=== PATIENT | male | born 1985 | race Caucasian/White ===

== ENCOUNTER 2017-04-26 02:25 | Emergency (ER) | payer OTHER ==
[~2017-04-26] VITALS: Ht 188 cm; Wt 99.8 kg
[~2017-04-26 02:25] MED LIST: CHLORDIAZEPOXID25 M1 PO; ONDANSETRON HCL4 M2 PO
[2017-04-26 04:00] VITALS: BP 128/75
== END 2017-04-26 04:00 | disposition home or self-care (01) ==
LOC: ER 02:25
DX: S41.111A Laceration without foreign body of right upper arm, initial encounter (principal); F41.9 Anxiety disorder, unspecified; F10.10 Alcohol abuse, uncomplicated; W25.XXXA Contact with sharp glass, initial encounter; Y93.89 Activity, other specified; Y92.89 Other specified places as the place of occurrence of the external cause; Y99.8 Other external cause status; Z88.0 Allergy status to penicillin

== ENCOUNTER 2020-02-28 15:33 | Inpatient (IN) | payer OTHER ==
[~2020-02-28] VITALS: Ht 182.9 cm; Wt 90.8 kg
[2020-02-28 15:39] VITALS: BP 142/95
[2020-02-28] MEDS ORDERED: DESYREL150 MG PO (15:44)
[2020-02-28 16:45] LABS: ABSOLUTE NEUTROPHILS 7.8 thou/uL (1.4-8.2); BASOPHILS 0.5 % (0.0-2.0); EOSINOPHILS 0.1 % (0.0-3.0); HEMATOCRIT 54.6 % (42.0-52.0); HEMOGLOBIN 18.5 gm/dL (14.0-18.0); LYMPHOCYTES 21.1 % (24.0-44.0); MCH 31.3 pg (26.0-34.0); MCHC 33.8 g/dL (28.0-37.0); MCV 92.5 fL (80.0-100.0); MONOCYTES 6.7 % (1.0-8.0); PLATELET COUNT 438 thou/uL (150-400); POLYS 71.6 % (36.0-66.0); RBC 5.91 mil/uL (4.50-6.00); RDW 14.2 % (10.5-14.5)
[2020-02-28 16:48] LABS: ANION GAP 15 mmol/L (7-16); BUN 12 mg/dL (7-18); CALCIUM 8.9 mg/dL (8.5-10.1); CHLORIDE 96 mmol/L (98-107); CO2 26 mmol/L (21-32); CREATININE 1.5 mg/dL (0.7-1.3); GLUCOSE 100 mg/dL (74-106); POTASSIUM 3.9 mmol/L (3.5-5.1); SODIUM 137 mmol/L (136-145)
[2020-02-28 16:54] LABS: ALBUMIN 4.3 g/dL (3.4-5.0); DIRECT BILIRUBIN < 0.1 mg/dL (<0.1-0.2); LIPASE 93 U/L (73-393); SGOT 34 U/L (15-37); SGPT 47 U/L (30-65); TOTAL BILIRUBIN 0.3 mg/dL (<0.1-1.0); TOTAL PROTEIN 8.5 g/dL (6.4-8.2)
[2020-02-28 20:17] VITALS: BP 118/66
[2020-02-28 20:26] VITALS: BP 136/70
[2020-02-28 21:17] VITALS: BP 138/81
[2020-02-28 23:55] VITALS: BP 143/68
[2020-02-29 03:05] VITALS: BP 129/69
--- NOTE | 2020-02-29 06:30 | NUR ---
PATIENTS CARES WERE RECIEVED FROM THE ER. PATIENT WAS ASSESSED AND MEDS WERE PASSED. PATIENTS ONLY REQUEST IS SOMETHING FOR ANXIETY. LOR[place] IV WAS OBTAINED. HOURLY ROUNDS WERE DONE. THE BED IS IN A LOW AND LOCKED POSITION
[2020-02-29 07:22] VITALS: BP 129/81
[2020-02-29 09:41] LABS: CALCIUM 8.4 mg/dL (8.5-10.1); CREATININE 1.5 mg/dL (0.7-1.3)
[2020-02-29 11:37] VITALS: BP 133/87
[2020-02-29 15:50] VITALS: BP 121/71
--- NOTE | 2020-02-29 18:43 | NUR ---
RECEIVED PT'S CARE AROUND 0700; PT. ON BED; AOX4; DURING AM ASSESSMENT C/O HEADACHE, NAUSEA, CHILL OVER BODY; NO CIWA PROTOCOL ON EMAR; PHYSICIAN NOTIFIED; ORDERS RECEIVED; MEDICATION GIVEN; SR ON THE MONITOR; ABLE TO AMBULATE FROM BED TO RESTHROOM WITHOUT ASSISTANCE; EDUCATED ABOUT FALL PREVENTIONS; C/O HEADACHE AROUND NOON; PRN MEDICATION GIVEN; CIWA REPLACED PER PROTOCOL; ASSESSMENT CHARGED; FOLLOWING POC; WILL PASS ON REPORT;
[2020-02-29 19:28] VITALS: BP 142/85
[2020-03-01 04:12] VITALS: BP 122/77
--- NOTE | 2020-03-01 05:54 | NUR ---
ASSESSMENT DOCUMENTED.PT BEEN SLEEPING MOST OF THE NOC.ON RA W/O RESP DISTRESS.ON CIWR PER PROTOCOL SCORE 1-2.DENIES ANY DISCOMFORT.SEEMS CALM W/O RESP DISTRESS.UP AD DINAH IN THE ROOM.IVF INFUSING.PT HOPING TO GO HOME TODAY.WILL CONT TO MONITOR PER POC.
[2020-03-01 08:00] VITALS: BP 138/78
--- NOTE | 2020-03-01 10:30 | NUR ---
PT ADMITTED RELATED TO ETOH. CM REVIEWED CHART AND SPOKE WITH CARE TEAM. CM CALLED AND SPOKE WITH PT OVER [facility] PHONE YESTERDAY. PT INDICATED HE LIVES IN AN APARTMENT WITH TWO MALE ROOMMATES. PT INDICATED THERE ARE 4 FLIGHTS OF STEPS TO ENTER AND 8 TO ENTER. PT INDICATED HE HAD BEEN INDEPENDENT WITH GAIT AND [employer]LS MEDICAL COLLECTIONS. NO DME. PT INDICATED HE HAD BEEN TO [facility] FOR 3 MONTHS ABOUT A YEAR AND A HALF AGO. PT INDICATED HE WOULD PREFER TO DO OP TREATMENT UPON DISCHARGE HE WORRIES ABOUT REQUESTING LEAVE FROM HIS CURRENT EMPLOYER. CM TO PROVIDE INFO OP TREATMENT OPTIONS FOR PT TO FOLLOW UP WITH. CM TO FOLLOW INDICATED WITH DC PLANNING.
[2020-03-01 11:52] LABS: ABSOLUTE NEUTROPHILS 3.2 thou/uL (1.4-8.2); BASOPHILS 0.4 % (0.0-2.0); EOSINOPHILS 1.4 % (0.0-3.0); HEMATOCRIT 46.9 % (42.0-52.0); HEMOGLOBIN 15.6 gm/dL (14.0-18.0); LYMPHOCYTES 20.3 % (24.0-44.0); MCHC 33.3 g/dL (28.0-37.0); MCV 93.1 fL (80.0-100.0); MONOCYTES 11.3 % (1.0-8.0); PLATELET COUNT 295 thou/uL (150-400); POLYS 66.6 % (36.0-66.0); RBC 5.03 mil/uL (4.50-6.00); RDW 14.2 % (10.5-14.5); WBC 4.8 thou/uL (4.0-11.0)
[2020-03-01 12:10] LABS: ALBUMIN 3.4 g/dL (3.4-5.0); CALCIUM 8.4 mg/dL (8.5-10.1); CREATININE 1.2 mg/dL (0.7-1.3); POTASSIUM 4.1 mmol/L (3.5-5.1); TOTAL PROTEIN 6.8 g/dL (6.4-8.2)
[2020-03-01] MEDS ORDERED: TRAZODONE 150150 M1 PO (15:01)
[2020-03-01 16:02] VITALS: BP 138/78
[2020-03-01 16:30] VITALS: BP 147/88
--- NOTE | 2020-03-01 18:39 | NUR ---
RECEIVED PT'S CARE AROUND 0700; PT. ON BED; RESTING WITH EYES CLOSED; EQUAL CHEST RISING NOTICED; SR ON THE MONITOR; DURING AM ASSESSMENT NO C/O PAIN; AM MEDICATION GIVEN; POOR APPETITE THROUGH THE DAY; PHYSICIAN NOTIFIED DURING ROUNDING; ORDERS RECEIVED; REST & EXERCISE 02 ORDERED PER PHYSICIAN; ELEVATED HR WHILE AMBULATING; PHYSICIAN NOTIFIED; ORDERS ON PLACE; PT. UPDATE ABOUT POC; ST. UNDERSTANDING; NS FLUIDS STARTING; SR ON THE MONITOR AT REST; ST. WITH EXERTION; LORAZEPAM GIVEN DURING THE AFTERNOON; PER [facility] PROTOCOL; ASSESSMENT CHARGED; FOLLOWING POC; WILL PASS ON REPORT;
[2020-03-01 20:15] VITALS: BP 155/81
--- NOTE | 2020-03-02 03:48 | NUR ---
PATIENT IS PROGRESSING IN HIS CARE PLAN. VITAL SIGNS STABLE WITH PATIENT HAVING NO COMPLAINTS OF PAIN OR NAUSEA. FULLY ORIENTED, PATIENT IS ABLE TO CALL APPROPRIATELY FOR NEEDS. CIWA PER PROTOCOL. NO PROBLEMS BREATHING ON ROOM AIR EVIDENCED BY ASSESSMENT AND SPOT OXYGENATION CHECKS. POTENTIAL DISCHARGE HOME TODAY. CONTINUE PLAN OF CARE.
[2020-03-02 05:15] VITALS: BP 117/58
[2020-03-02 05:54] LABS: ABSOLUTE NEUTROPHILS 2.6 thou/uL (1.4-8.2); BASOPHILS 0.9 % (0.0-2.0); EOSINOPHILS 4.7 % (0.0-3.0); HEMOGLOBIN 15.2 gm/dL (14.0-18.0); LYMPHOCYTES 39.7 % (24.0-44.0); MONOCYTES 10.9 % (1.0-8.0); PLATELET COUNT 273 thou/uL (150-400); POLYS 43.8 % (36.0-66.0); RBC 4.89 mil/uL (4.50-6.00); RDW 14.3 % (10.5-14.5); WBC 5.9 thou/uL (4.0-11.0)
[2020-03-02 06:09] LABS: CALCIUM 8.1 mg/dL (8.5-10.1); CREATININE 1.2 mg/dL (0.7-1.3); MAGNESIUM 2.1 mg/dL (1.8-2.4); PHOSPHORUS 3.9 mg/dL (2.5-4.9); POTASSIUM 3.7 mmol/L (3.5-5.1)
[2020-03-02 07:30] VITALS: BP 124/68
[2020-03-02] MEDS ORDERED: VITAMIN B-1100 M2 PO (08:34)
[2020-03-02] MEDS ORDERED: FOLIC ACID1 MG PO (08:34)
[2020-03-02] MEDS ORDERED: ZOFRAN 4 MG ORAL4 MG PO (08:35)
--- NOTE | 2020-03-02 13:48 | NUR ---
VSS-AFEBRILE. NO S/S OF ETOH WITHDRAWL. DISCUSSED ALL DC INSTRUCTIONS AND NEWLY PRESCRIBED MEDICATIONS, VERBALIZED UNDERSTANDING OF ALL MATERIALS. CALLED IN ALL PRESCRIPTIONS TO [facility] ON [address] PER ORDER FROM DR HAIDER. TAKEN OFF UNIT TO PRIVATE VEHICLE WITH ALL PAPERWORK AND PERSONAL BELONGINGS.
== END 2020-03-02 13:11 | disposition home or self-care (01) | DRG 896 ==
LOC: ER 15:33 → 2N 18:17 → EROBS 18:17 → 2N 20:49
PROVIDERS: Emergency Medicine; Internal Medicine; ADMIT Hospitalist
PROC: HZ2ZZZZ Detoxification Services for Substance Abuse Treatment (ICD-10-PCS; principal; 2020-02-28)
DX: F10.239 Alcohol dependence with withdrawal, unspecified (principal); N17.0 Acute kidney failure with tubular necrosis; N17.9 Acute kidney failure, unspecified; F41.9 Anxiety disorder, unspecified; F90.9 Attention-deficit hyperactivity disorder, unspecified type; E86.0 Dehydration; E87.6 Hypokalemia; Z88.0 Allergy status to penicillin; Z79.891 Long term (current) use of opiate analgesic; Z79.899 Other long term (current) drug therapy
CPT/HCPCS: 10081; 10797

== ENCOUNTER 2020-07-01 20:26 | Emergency (ER) | payer OTHER ==
[~2020-07-01] VITALS: Ht 190.5 cm; Wt 95.3 kg
[~2020-07-01 20:26] MED LIST changes: +DESYREL150 MG PO; +FOLIC ACID1 MG PO; +TRAZODONE 150150 M1 PO; +VITAMIN B-1100 M2 PO; +ZOFRAN 4 MG ORAL4 MG PO
[2020-07-01] MEDS ORDERED: CONCERTA54 M1 PO (20:42)
[2020-07-02] MEDS ORDERED: CHLORDIAZEPOXID25 M1 PO (01:15)
[2020-07-02 01:23] VITALS: BP 140/73
== END 2020-07-02 01:26 | disposition home or self-care (01) ==
LOC: ER 20:26
DX: F10.10 Alcohol abuse, uncomplicated (principal); R19.7 Diarrhea, unspecified; F41.9 Anxiety disorder, unspecified; Z79.899 Other long term (current) drug therapy; Z88.8 Allergy status to other drugs, medicaments and biological substances; Z88.0 Allergy status to penicillin